=== PATIENT | male | born 1940 | race Caucasian/White ===

== ENCOUNTER 2017-03-07 10:20 | Inpatient (IN) | payer MEDICARE, BC ==
[~2017-03-07] VITALS: Ht 175.3 cm; Wt 63.5 kg
--- NOTE | 2017-03-07 10:24 | NUR ---
[id number] FROM HOME: R HIP PAIN S/P GLF.
--- NOTE | 2017-03-07 11:00 | NUR ---
RAC #16 IV ACCESS. BLOOD SAMPLE COLLECTED SENT TO LAB
--- NOTE | 2017-03-07 11:19 | NUR ---
PAGED FLIGHT FOLLOWER ORTHO DR HENDRICKSON
--- NOTE | 2017-03-07 11:32 | NUR ---
CALLED [employer], CIRCUIT DESIGNER WAS PAGED.
[2017-03-07 11:47] LABS: BASOPHILS # (AUTO) 0.1 /CMM (0.0-0.2); BASOPHILS % (AUTO) 0.4 % (0.0-2.0); EOSINOPHILS # (AUTO) 0.1 /CMM (0.0-0.7); EOSINOPHILS % (AUTO) 0.9 % (0.0-6.0); HEMATOCRIT 46 % (39-51); HEMOGLOBIN 15.6 g/dL (13.5-17.5); LYMPHOCYTES # (AUTO) 0.7 /CMM (0.8-4.8); LYMPHOCYTES % (AUTO) 5.1 % (20.0-44.0); MEAN CORPUSCULAR HEMOGLOBIN 30 PG (26.0-33.0); MEAN CORPUSCULAR HGB CONC 34 g/dl (31.0-36.0); MEAN CORPUSCULAR VOLUME 89 fL (80-96); MONOCYTES # (AUTO) 0.6 /CMM (0.1-1.30); NEUTROPHILS # (AUTO) 12.7 /CMM (1.8-8.9); NEUTROPHILS % (AUTO) 89.6 % (43.0-81.0); PLATELET COUNT (AUTO) 321 /CMM (150-450); RDW COEFFICIENT OF VARIATION 12.5 (11.5-15.0); RED BLOOD CELL COUNT(AUTO) 5.17 MIL/uL (4.5-6.0); WHITE BLOOD COUNT (AUTO) 14.2 K/uL (4.3-11.0)
--- NOTE | 2017-03-07 11:47 | NUR ---
MS 320-1
[2017-03-07 11:51] LABS: CALCIUM, SERUM 8.2 mg/dL (8.5-10.1); CARBON DIOXIDE 28 mmol/L (21-32); CHLORIDE 92 mmol/L (98-107); CREATININE 0.8 mg/dL (0.6-1.3); GLUCOSE 141 mg/dL (74-106); POTASSIUM 4.2 mmol/L (3.5-5.1); SODIUM SERUM 126 mmol/L (136-145); UREA NITROGEN, BLOOD 6 mg/dL (7-18)
[2017-03-07 11:59] LABS: INR 0.97 (0.87-1.13); PROTHROMBIN TIME 10.1 SECS (9.5-12.7)
[2017-03-07] MEDS ORDERED: DUTA0.5C PO (12:10)
[2017-03-07] MEDS ORDERED: CLID1CAP PO (12:10)
[2017-03-07] MEDS ORDERED: ASPI81TA2 PO (12:10)
--- NOTE | 2017-03-07 12:12 | NUR ---
GAVE REPORT TO CAL CLARK MS RT HIP FX DR GARZA
--- NOTE | 2017-03-07 12:41 | NUR ---
PT GIVEN PAIN MEDS PER MD . SURGEON AT BEDSIDE VSS
--- NOTE | 2017-03-07 12:42 | NUR ---
TRANSFER TO FLOOR STABLE
[2017-03-07 13:10] VITALS: BP 133/72
--- NOTE | 2017-03-07 13:10 | NUR ---
MS Initial Notes: Patient transferred from ER per MD orders. Received report from [facility]. Patient stable. Non-labored breathing noted. No signs of distress. Vital signs within normal range. Patient alert oriented x4. Patient's belongings accounted for. Patient refused pain medications when offered. Patient has right AC IV that is patent and intact. Pictures of skin discoloration and bruising taken and placed in chart. Patient refused to turn and refused pictures to be taken of his back. Dr. Dooley aware of admission. Will continue to monitor.
[2017-03-07 13:40] VITALS: BP 133/72
--- NOTE | 2017-03-07 15:10 | NUR ---
MS RN NOTES: Family members notified to bring a copy of the advanced directives.
[2017-03-07 16:00] VITALS: BP 132/82
--- NOTE | 2017-03-07 18:52 | NUR ---
MS RN Closing Notes: Patient resting in bed. Patient stable. Non-labored breathing noted. No signs of distress. Vital signs within normal range. Patient alert oriented x4. IV patent and intact. Bed in lowest/locked position. Call light within reach. Will endorse to next shift.
--- NOTE | 2017-03-07 19:00 | NUR ---
RN NOTE PT AAOX4, HERE FOR R HIP FX. NO C/O ANY PAIN OR DISCOMFORT AT THIS TIME. NO S/S OF RESPIRATORY DISTRESS. BREATHING NON-LABORED AND EVEN. IV INTACT, TOLERATING FLUISD WELL. CALL LIGHT IN REACH. WILL CONT TO MONITOR.
[2017-03-07 20:00] VITALS: BP 136/84
--- NOTE | 2017-03-08 06:59 | NUR ---
RN NOTE NO SIGNIFICANT EVENTS OVERNIGHT. PT AAOX4, NO S/S OR C/O ANY PAIN OR DISTRESS AT THIS TIME. BREATHING EVEN AND NON-LABORED. IV INTACT AND PATENT, TOLERATING FLUIDS WELL. FAMILY AT BEDSIDE. WILL F/U WITH DAY SHIFT FOR CLAIRE.
--- NOTE | 2017-03-08 07:00 | NUR ---
RN NOTE NO SIGNIFICANT CHANGES OVERNIGHT. PT AAOX4, DENIES PAIN AT THIS TIME. BREATHING NON-LABORED AND EVEN. NPO SINCE MN. IV INTACT AND PATENT, TOLERATING FLUISD WELL. FOR SURGERY TODAY 0800. WILL F/U WITH DAY SHIFT FOR CLAIRE.
--- NOTE | 2017-03-08 07:15 | NUR ---
MS RN Notes Patient in bed, awake, A/O x4. Patient is on NPO status, for surgery today. Patient is aware. IV NS infusing at 75ml/hr. No c/o pain at this time, call light within reach.
[2017-03-08 07:30] VITALS: BP 141/76
[2017-03-08 07:30] LABS: BASOPHILS % (AUTO) 0.1 % (0.0-2.0); EOSINOPHILS # (AUTO) 0.2 /CMM (0.0-0.7); EOSINOPHILS % (AUTO) 1.7 % (0.0-6.0); HEMATOCRIT 37 % (39-51); HEMOGLOBIN 12.5 g/dL (13.5-17.5); LYMPHOCYTES # (AUTO) 1.5 /CMM (0.8-4.8); LYMPHOCYTES % (AUTO) 14.7 % (20.0-44.0); MEAN CORPUSCULAR HEMOGLOBIN 30 PG (26.0-33.0); MEAN CORPUSCULAR HGB CONC 34 g/dl (31.0-36.0); MEAN CORPUSCULAR VOLUME 89 fL (80-96); MONOCYTES % (AUTO) 9.6 % (2.0-12.0); NEUTROPHILS # (AUTO) 7.6 /CMM (1.8-8.9); NEUTROPHILS % (AUTO) 73.9 % (43.0-81.0); PLATELET COUNT (AUTO) 253 /CMM (150-450); RDW COEFFICIENT OF VARIATION 13.5 (11.5-15.0); WHITE BLOOD COUNT (AUTO) 10.3 K/uL (4.3-11.0)
--- NOTE | 2017-03-08 07:36 | NUR ---
Patient is taken to the OR for surgery ORIF R Hip
[2017-03-08 08:00] VITALS: BP 141/76
[2017-03-08 08:00] LABS: CALCIUM, SERUM 8.1 mg/dL (8.5-10.1); CARBON DIOXIDE 27 mmol/L (21-32); CHLORIDE 99 mmol/L (98-107); CREATININE 0.7 mg/dL (0.6-1.3); GLUCOSE 121 mg/dL (74-106); MAGNESIUM 2.1 mg/dL (1.8-2.4); PHOSPHORUS 3.2 mg/dL (2.5-4.9); POTASSIUM 4.6 mmol/L (3.5-5.1); SODIUM SERUM 133 mmol/L (136-145); UREA NITROGEN, BLOOD 7 mg/dL (7-18)
[2017-03-08 11:05] VITALS: BP 133/67
--- NOTE | 2017-03-08 11:05 | NUR ---
Patient is back from surgery, fracture R hip. V/S taken and recorded, made comfortable in bed. Left wrist has IV gauge 20 patient and intact, inserted in the OR. Right hip dressing in place, no bleeding noted. Will cont to monitor closely.
[2017-03-08 16:00] VITALS: BP 139/69
--- NOTE | 2017-03-08 18:14 | NUR ---
MS RN closing notes Patient in bed, not in distress. S/P surgical fixation right femur fracture today by dr. Wilkerson. Right hip surgical incision, dressing in place, no bleeding. On antibiotic with no adverse side effect, afebrile, no diarrhea. NWB RLE per ortho. Luu cath intact, draining to gravity, urine clear and yellow. No c/o pain at this time. SCD in place. Call light within reach. Will endorse to shift superintendent RN for continuity of care.
--- NOTE | 2017-03-08 19:07 | NUR ---
Received phone call from Kevyn/CHIOMA, BMP CBC in am per Dr. Greco.
--- NOTE | 2017-03-08 19:10 | NUR ---
RN NOTE RECEIVED REPORT. PT AAOX4, NO C/O PAIN OR DISCOMFORT. BREATHING EVEN AND NON-LABORED. TOLERATING IV FLUIDS WELL. R HIP DRESSING I/C/D, NO BLEEDING NOTED. FC DRAINING YELLOW FLUID. ICE PACKS APPLIED TO SITE, LEG ELEVATED. WILL CONT TO MONITOR.
[2017-03-08 20:00] VITALS: BP 124/66
[2017-03-08 20:13] LABS: BASOPHILS % (AUTO) 0.1 % (0.0-2.0); EOSINOPHILS % (AUTO) 0.1 % (0.0-6.0); HEMATOCRIT 28 % (39-51); HEMOGLOBIN 9.7 g/dL (13.5-17.5); LYMPHOCYTES # (AUTO) 0.9 /CMM (0.8-4.8); LYMPHOCYTES % (AUTO) 6.7 % (20.0-44.0); MEAN CORPUSCULAR HEMOGLOBIN 31 PG (26.0-33.0); MEAN CORPUSCULAR HGB CONC 34 g/dl (31.0-36.0); MEAN CORPUSCULAR VOLUME 89 fL (80-96); MONOCYTES # (AUTO) 1.4 /CMM (0.1-1.30); MONOCYTES % (AUTO) 10.2 % (2.0-12.0); NEUTROPHILS # (AUTO) 11.2 /CMM (1.8-8.9); NEUTROPHILS % (AUTO) 82.9 % (43.0-81.0); PLATELET COUNT (AUTO) 226 /CMM (150-450); RDW COEFFICIENT OF VARIATION 12.9 (11.5-15.0); RED BLOOD CELL COUNT(AUTO) 3.16 MIL/uL (4.5-6.0); WHITE BLOOD COUNT (AUTO) 13.5 K/uL (4.3-11.0)
[2017-03-08 20:22] LABS: CALCIUM, SERUM 7.4 mg/dL (8.5-10.1); CARBON DIOXIDE 26 mmol/L (21-32); CHLORIDE 101 mmol/L (98-107); CREATININE 0.7 mg/dL (0.6-1.3); GLUCOSE 112 mg/dL (74-106); POTASSIUM 4.2 mmol/L (3.5-5.1); SODIUM SERUM 134 mmol/L (136-145); UREA NITROGEN, BLOOD 8 mg/dL (7-18)
--- NOTE | 2017-03-08 21:00 | NUR ---
RN NOTE PT REFUSED PICTURES OF SKIN ISSUES DESPITE TEACHING ON HOSPITAL POLICY. PT STATES HES IN TO MUCH PAIN TO MOVE.
[2017-03-08 21:24] LABS: LYMPHOCYTES % (MANUAL) 5 % (16-48); MONOCYTES % (MANUAL) 5 % (0-11.0); NEUTROPHILS % (MANUAL) 89 (42-76); REACTIVE LYMPHOCYTES 1 % (0-0)
--- NOTE | 2017-03-09 06:45 | NUR ---
RN NOTE NO SIGNIFICANT CHANGES OVERNIGHT. PT SLEPT WELL. AAOX3, NO S/S OR C/O ANY PAIN OR DISCOMFORT AT THIS TIME. IV INTACT AND PATENT. BREATHING NON-LABORED AND EVEN. SX DRESSING I/C/D. RLE ELEVATED , ICE PACKS APPLIED. CALL LIGHT IN REACH, WILL F/U WITH DAY SHIFT FOR CLAIRE.
[2017-03-09 06:51] LABS: BASOPHILS % (AUTO) 0.2 % (0.0-2.0); HEMATOCRIT 24 % (39-51); HEMOGLOBIN 8.1 g/dL (13.5-17.5); LYMPHOCYTES # (AUTO) 1.3 /CMM (0.8-4.8); LYMPHOCYTES % (AUTO) 12.7 % (20.0-44.0); MEAN CORPUSCULAR HEMOGLOBIN 31 PG (26.0-33.0); MEAN CORPUSCULAR HGB CONC 34 g/dl (31.0-36.0); MEAN CORPUSCULAR VOLUME 90 fL (80-96); MONOCYTES % (AUTO) 9.6 % (2.0-12.0); NEUTROPHILS # (AUTO) 7.7 /CMM (1.8-8.9); NEUTROPHILS % (AUTO) 77.5 % (43.0-81.0); PLATELET COUNT (AUTO) 186 /CMM (150-450); RDW COEFFICIENT OF VARIATION 13.6 (11.5-15.0); RED BLOOD CELL COUNT(AUTO) 2.66 MIL/uL (4.5-6.0); WHITE BLOOD COUNT (AUTO) 9.9 K/uL (4.3-11.0)
[2017-03-09 06:55] LABS: CALCIUM, SERUM 7.2 mg/dL (8.5-10.1); CARBON DIOXIDE 25 mmol/L (21-32); CHLORIDE 100 mmol/L (98-107); CREATININE 0.6 mg/dL (0.6-1.3); GLUCOSE 116 mg/dL (74-106); POTASSIUM 4.1 mmol/L (3.5-5.1); SODIUM SERUM 132 mmol/L (136-145); UREA NITROGEN, BLOOD 7 mg/dL (7-18)
[2017-03-09 07:43] LABS: IRON, SERUM 15 ug/dl (50-175); TOTAL IRON BINDING CAPACITY 164 ug/dl (250-450)
[2017-03-09 07:45] LABS: FERRITIN 235 ng/mL (8-388)
--- NOTE | 2017-03-09 07:57 | NUR ---
MED SURGE RN: INITIAL NOTE RECEIVED PT A/O X4. NO DISTRESS. NO PAIN. NO SOB NOTED. SATING AT 98% ON ROOM AIR. F/C IN PLACE AND DRAINING. R AC AND L WRIST IV. RUNNING IV NS @ 75ML/HR. SITE CLEAR. PATENT. NO REDNESS. NO INFILTRATION NOTED. RESTING COMFORTABLY IN BED. CALL LIGHT WITHIN REACH.
[2017-03-09 08:00] VITALS: BP 108/63
--- NOTE | 2017-03-09 09:00 | NUR ---
P.T. CALLED AND QUESTIONED PT'S WT BEARING ORDER.CALLED DR SMART'S OFFICE AND METAL SANDER STATED THAT DR SMART IS IN THE MEETING AND WON'T BE AVAILABLE NOT TILL 1400.PT AND PHYSICAL THERAPY MADE AWARE.
--- NOTE | 2017-03-09 12:21 | NUR ---
WOUND CARE CONSULT: PT REFUSED SKIN ASSESSMENT. PT NOTED TO BE ANGRY AND IRRITABLE. PT ON PLACIDO ISOFLEX LOW AIRLOSS BED. ALL SKIN PROTECTION MEASURES IN PLACE AND DISCUSSED WITH NURSING STAFF. WILL SEE PRN. NATH IN AGREEMENT WITH PLAN OF CARE.
[2017-03-09 16:00] VITALS: BP 139/69
--- NOTE | 2017-03-09 16:17 | NUR ---
CALLED DR SMART TO NOTIFY HIM THAT P.T.TX CAN'T BE 2X A DAY PER PROTOCOL BUT TO NO AVAIL.
--- NOTE | 2017-03-09 16:18 | NUR ---
PT WAS SEEN BY NEGRA Hassan WHO REPORTED THAT PT SAT ON BED WITH MAX ASSIST IN STANDING AND SITTING BUT PT IS LEANING BACKWARDS.PT WILL BE SEEN TOMORROW BY Mo
--- NOTE | 2017-03-09 18:41 | NUR ---
MED SURGE RN: CLOSING NOTE PT A/OX4. TOOK ALL MEDICATIONS ON TIME. NO ADVERSE REACTIONS NOTED. PAIN CONTROLLED WITH PAIN MANAGEMENT. NO SOB. ON 2L NC SATING AT 98%. SPIROMETER AT BEDSIDE. EDUCATED TO USE [id number]. R WRSIT AND L WRIST IV PATENT. NO REDNESS NOTED. NO PAIN NOTED. NO IV FLUIDS RUNNING. TURNED AND REPOSITIONED [id number]. NO N/V NOTED. PT KANCHAN STATED MAXIMUM ASSIST WHILE WALKING AND PARTIAL WEIGHT BARING. RESTING COMFORTABLY IN BED. CALL LIGHT WITHIN REACH.
--- NOTE | 2017-03-09 19:15 | NUR ---
RN NOTES RECEIVED PT ASLEEP EASILY AROUSABLE,HOB ELEVATED, NO SOB, NOT IN DISTRESS ON 2LPM O2 AND TOLERATED WELL. PT ALERT AND ORIENTED X4, DENIES PAIN, NAUSEA AND VOMITING AT THIS TIME. IV ACCESS ON RIGHT AC AND LEFT WRIST PATENT AND INTACT, NO SIGNS OF INFILTRATE NOTED. OLEARY CATH INTACT WITH CLEAR YELLOW URINE OUTPUT NOTED. DVT PUMP ON. KEPT COMFORTABLE AND ATTENDED. FALL PRECAUTION OBSERVED. CALL LIGHT WITHIN REACH. WILL CONTINUE TO MONITOR PT.
[2017-03-09 20:00] VITALS: BP 126/71
[2017-03-09 22:00] VITALS: BP 126/71
--- NOTE | 2017-03-10 07:37 | NUR ---
RN NOTES PT ASLEEP, HOB ELEVATED, NO SOB, NOT IN DISTRESS, ON ROOM AIR WITH GOOD SATURATION. VITAL SIGNS STABLE, AFEBRILE. NO COMPLAIN OF PAIN, NO EPISODE OF NAUSEA AND VOMITING. OLEARY CATH INTACT WITH CLEAR URINE OUTPUT NOTED. ALL NEEDS ATTENDED. ENDORSED TO MORNING RN FOR CONTINUITY OF CARE.
--- NOTE | 2017-03-10 07:46 | NUR ---
MED SURGE RN: INITIAL NOTES RECEIVED PT A/O X4. NO DISTRESS NOTED. NO SOB NOTED. ON 2L NC SATING AT 95%. FOLY CATH IN PLACE DRAINING AND PATENT. NO PAIN. RIGHT LEG DRESSING STILL INTACT. IV ON RAC AND LW WITH NO IV FLUIDS RUNNING. RESTING COMFORTABLY IN BED. CALL LIGHT WITHIN REACH.
[2017-03-10 08:00] VITALS: BP 136/71
--- NOTE | 2017-03-10 10:00 | NUR ---
PT REFUSED TO BE TURNED AND REPOSITIONED. ALL RISKS AND BENEFITS EXPLAINED. OFFERED TO GIVE PAIN MEDICATIONS TO HELP WITH INCREASE IN ADLS. PT REFUSED.
--- NOTE | 2017-03-10 12:00 | NUR ---
PT REFUSED TO BE TURNED AND REPOSITIONED. ALL RISKS AND BENEFITS EXPLAINED. PT STATED HE IS COMFORTABLE SITTING THE WAY HE IS.
--- NOTE | 2017-03-10 14:00 | NUR ---
PT WAS ABLE TO AMBULATE WITH MAXIMUM ASSISTANCE DURING PHYSICAL THERAPY. ADMINISTERED PAIN MEDICATIONS BEFORE PT. EDUCATED THE PT ABOUT THE IMPORTANCE OF PAIN MEDICATIONS TO BE ABLE TO COMPLETE ADLS COMFORTABLY. PT STATED HE DOES NOT WANT TO BE TURNED AND REPOSITIONED. ALL RISKS AND BENEFITS EXPLAINED.
--- NOTE | 2017-03-10 15:22 | NUR ---
PT WAS SEEN BY P.T. AND RECOMMENDED ACUTE REHAB UNIT PLACEMENT.DR COATS MADE AWARE WITH ORDERS FOR CASE MGT CONSULT.CALLED CLINT,DOPE MIXER WHO IS ALREADY DOING FOLLOW UP ON THE PT FOR ARU PLACEMENT.
[2017-03-10 16:00] VITALS: BP 108/63
--- NOTE | 2017-03-10 18:07 | NUR ---
MED SURGE RN: CLOSING NOTE PT A/O X4. NO DISTRESS. NO SOB. O2 RUNNING 2 L NC SATING AT 96%. IC ON RAC #18 AND LW #20. NO IV FLUIDS RUNNING. NO N/V NOTED. ABLE TO AMBULATE WITH PT WITH WALKER AND MAXIMUM ASSISTANCE. PAIN MEDICATIONS PROVIDED BEFORE PT. PROVIDED PAIN MEDICATIONS THROUGHOUT SHIFT BUT PT REFUSED (EXCEPT BEFORE PT) STATING THAT HE IS COMFORTABLE. REFUSED TO TURN AND REPOSITION Q2 HOURS. ALL RISKS AND BENEFITS EXPLAINED. FC D/C PER MD ORDERS. NO URINE RETENTION NOTED. ABLE TO URINATE. RESTING COMFORTABLY IN BED. CALL LIGHT WITHIN REACH.
--- NOTE | 2017-03-10 19:30 | NUR ---
MS RN NOTES RECEIVED ON BED A/O X 3-4.BREATHING REGULAR.O2 IN USED AT 2L TO KEEP O2 SAT ABOVE 90%.S/P RIGHT HIP ORIF,FIRS DRESSING DONE TODAY.DRESSING INTACT AND DRY.SALINE LOCK BOTH ARMS INTACT AND PATENT.DVT PUMP IN USED FOR DVT PROPHYLAXIS.BED ON LOWEST POSITION AND LOCK.CALL LIGHT IN REACH,NEEDS ANTICIPATED.
[2017-03-10 20:00] VITALS: BP 121/69
--- NOTE | 2017-03-10 20:00 | NUR ---
MS RN NOTES CLAIMED IM NOT COMFORTABLE,OFFERED TO BE REPOSITION BUT REFUSED,OFFERED PAIN CONTROL BUT SAID PAIN IS TOLERABLE.OFFERED WARM BLANKET AND HE FEELS BETTER.
[2017-03-10 20:20] VITALS: BP 121/69
--- NOTE | 2017-03-10 20:51 | NUR ---
MS RN NOTES HAVING ACID REFLUX,MAALOX 30ML PO ADMINISTERED PER PATIENT REQUEST
--- NOTE | 2017-03-10 20:53 | NUR ---
MS RN NOTES S/P RIGHT HIP ORIF,PT/INT.PLATELETS WITH IN NORMAL LIMITS,DUE LOVENOX 40MG SQ ADMINISTERED VIA RIGHT LOWER ABDOMEN.
--- NOTE | 2017-03-10 22:00 | NUR ---
MS RN NOTES OFFERED TO BE REPOSITION BUT REFUSED.EXPLAINED RISK FOR STAYING IN ONE POSITION BUT STILL REFUSED.
[2017-03-11] VITALS (8 sets, daily range): BP systolic 98–163; BP diastolic 57–84
--- NOTE | 2017-03-11 | NUR ---
MS RN NOTES SLEEPING WITH HOB ON UPRIGHT POSITION,OFFERED TO HELD DOWN A LITTLE BIT BUT REFUSED.OFFERED TO REPOSITION,REFUSED
--- NOTE | 2017-03-11 02:00 | NUR ---
MS RN NOTES SOUND ASLEEP ON SUPINE POSITION.KEPT WARM AND COMFORTABLE.
--- NOTE | 2017-03-11 06:15 | NUR ---
MS RN NOTES GETS OUT OF BED ASSISTED TO BEDSIDE CHAIR,NOTED SLIGHT BLEEDING ON SURGERY SITE,PRESSURE DRESSING DONE.OFFERED PAIN MEDICINE BUT REFUSED.
--- NOTE | 2017-03-11 06:48 | NUR ---
MS RN NOTES TOLERATED GETTING OUT OF BED WITH ASSIST.PAIN TOLERABLE.PUT BACK ON DVT PUMP.WILL RE CHECK VITAL SIGNS.CALL LIGHT IN REACH,NEEDS ATTENDED.WILL ENDORSE TO DAY NURSE FOR CLAIRE.
--- NOTE | 2017-03-11 07:28 | NUR ---
RN NOTES PATIENT AWAKE ALERT AND VERBALLY RESPONSIVE ABLE TO MAKE NEEDS KNOWN, WITH PERIODS OF FORGETFULNESS. RESPIRATIONS EVEN AND UNLABORED, IN NO APPARENT PAIN OR DISCOMFORT, NO FACIAL GRIMACING OR GUARDED MOVEMENT NOTED. IV ACCESS PATENT AND INTACT NO REDNESS OR INFILTRATION NOTED. PATIENT COMFORTABLE, CALL LIGHT WITHIN EASY REACH, WILL CONTINUE TO MONITOR
[2017-03-11 07:44] LABS: BASOPHILS % (AUTO) 0.1 % (0.0-2.0); EOSINOPHILS # (AUTO) 0.1 /CMM (0.0-0.7); EOSINOPHILS % (AUTO) 0.9 % (0.0-6.0); HEMATOCRIT 22 % (39-51); HEMOGLOBIN 7.6 g/dL (13.5-17.5); LYMPHOCYTES # (AUTO) 0.8 /CMM (0.8-4.8); MEAN CORPUSCULAR HEMOGLOBIN 31 PG (26.0-33.0); MEAN CORPUSCULAR HGB CONC 34 g/dl (31.0-36.0); MEAN CORPUSCULAR VOLUME 89 fL (80-96); MONOCYTES # (AUTO) 0.6 /CMM (0.1-1.30); MONOCYTES % (AUTO) 8.5 % (2.0-12.0); NEUTROPHILS # (AUTO) 5.4 /CMM (1.8-8.9); NEUTROPHILS % (AUTO) 79.5 % (43.0-81.0); PLATELET COUNT (AUTO) 214 /CMM (150-450); RDW COEFFICIENT OF VARIATION 13.5 (11.5-15.0); RED BLOOD CELL COUNT(AUTO) 2.45 MIL/uL (4.5-6.0); WHITE BLOOD COUNT (AUTO) 6.9 K/uL (4.3-11.0)
[2017-03-11 08:19] LABS: CALCIUM, SERUM 7.1 mg/dL (8.5-10.1); CARBON DIOXIDE 26 mmol/L (21-32); CHLORIDE 97 mmol/L (98-107); CREATININE 0.5 mg/dL (0.6-1.3); GLUCOSE 103 mg/dL (74-106); POTASSIUM 3.4 mmol/L (3.5-5.1); SODIUM SERUM 129 mmol/L (136-145); UREA NITROGEN, BLOOD 7 mg/dL (7-18)
[2017-03-11 11:06] LABS: HEMOGLOBIN 7.2 g/dL (13.5-17.5)
[2017-03-11 16:18] LABS: URINE SODIUM, RANDOM 18 mmol/l (40-220)
--- NOTE | 2017-03-11 16:38 | NUR ---
RN NOTES PATIENT STARTED ON BLOOD TRANSFUSION, WILL CONTINUE TO MONITOR FOR ANY REACTION, 2 NURSES COSIGNED
--- NOTE | 2017-03-11 16:52 | NUR ---
RN NOTES PATIENT ON TRANSFUSION FOR 15 MINUTES NO S/S OF ALLERGIC REACTIONS NOTED. IN NO APPARENT DISTRESS NOTED, WILL CONTINUE TO MONITOR
--- NOTE | 2017-03-11 17:49 | NUR ---
RN NOTES PER DR COATS PATIENT TO COMPLETE BLOOD TRANSFUSION HEMOGLOBIN LEVEL TO BE DRAWN ONE HOUR AFTER COMPLETION. SECOND TRANSFUSION TO BE ORDERED AFTER HEMOGLOBIN LEVEL IS DRAWN.
--- NOTE | 2017-03-11 19:07 | NUR ---
RN NOTES TRANSFUSION COMPLETED AND ENDED, NO ALLERGIC REACTIONS NOTED, TOLERATED WELL. IN NO APPARENT DISTRESS, LAB CALLED FOR HGB LEVEL TO BE DRAWN AT 2006, ENDORSED TO NEXT SHIFT FOR CONTINUITY OF CARE
--- NOTE | 2017-03-11 19:30 | NUR ---
RN NOTES PATIENT AWAKE ALERT AND VERBALLY RESPONSIVE ABLE TO MAKE NEEDS KNOWN, WITH PERIODS OF FORGETFULNESS. RESPIRATIONS EVEN AND UNLABORED, IN NO APPARENT PAIN OR DISCOMFORT, NO FACIAL GRIMACING OR GUARDED MOVEMENT NOTED. IV ACCESS PATENT AND INTACT NO REDNESS OR INFILTRATION NOTED. PATIENT COMFORTABLE, CALL LIGHT WITHIN EASY REACH, ENDORSED TO NEXT SHIFT FOR CONTINUITY OF CARE
[2017-03-11 20:04] LABS: OSMOLALITY,URINE 148 mOS/kg (340-1090)
[2017-03-11 20:33] LABS: BASOPHILS % (AUTO) 0.1 % (0.0-2.0); EOSINOPHILS % (AUTO) 0.4 % (0.0-6.0); HEMATOCRIT 24 % (39-51); HEMOGLOBIN 8.2 g/dL (13.5-17.5); LYMPHOCYTES # (AUTO) 0.3 /CMM (0.8-4.8); LYMPHOCYTES % (AUTO) 5.5 % (20.0-44.0); MEAN CORPUSCULAR HEMOGLOBIN 30 PG (26.0-33.0); MEAN CORPUSCULAR HGB CONC 34 g/dl (31.0-36.0); MEAN CORPUSCULAR VOLUME 90 fL (80-96); MONOCYTES # (AUTO) 0.1 /CMM (0.1-1.30); MONOCYTES % (AUTO) 1.4 % (2.0-12.0); NEUTROPHILS # (AUTO) 5.4 /CMM (1.8-8.9); NEUTROPHILS % (AUTO) 92.6 % (43.0-81.0); PLATELET COUNT (AUTO) 211 /CMM (150-450); RDW COEFFICIENT OF VARIATION 13.6 (11.5-15.0); RED BLOOD CELL COUNT(AUTO) 2.69 MIL/uL (4.5-6.0); WHITE BLOOD COUNT (AUTO) 5.8 K/uL (4.3-11.0)
--- NOTE | 2017-03-11 22:05 | NUR ---
ms/rn notes Patient one bed, alert et oriented.x3. respiration even et unlabored. No sob noted . Vital signs stable, afebrile. No complaints of any pain or discomfort at this time. Received 1 unit of prbc from day shift, Recheck Hem level post blood transfusion at 2030. H&H results- 8.2 and 24. Called and spoke with Dr. John and made aware of the result. She said not to give the 2nd unit of Prbc as ordered by Dr. Hlul. Just recheck the Labs in am. Charge nurse made aware. Will continue to monitor patient.
--- NOTE | 2017-03-12 05:42 | NUR ---
ms/rn notes patient on bed, no significant changes noted.Vital signs stable, afebrle. Denies pain or discomfort at present. administered all meds as ordered. Dressing changed on the right hip. patient tolerated it well. no acute distress noted. all needs attended. will continue to plan of care.
--- NOTE | 2017-03-12 07:33 | NUR ---
RN OPENING NOTES PATIENT RESTING COMFORTABLY IN BED WITH EYES CLOSED. PATIENT EASILY AROUSABLE. PATIENT REPORTED TO BE FORGETFUL, AOX2-3. PATIENT ON BEDREST. RESPIRATIONS APPEAR EVEN AND UNLABORED. PATIENT DENIES PAIN. DENIES SOB. NO ACUTE DISTRESS NOTED. INCENTIVE SPIROMETER AT THE BEDSIDE. IV ACCESS RIGHT AC 18G AND LEFT WRIST 20G PATENT AND INTACT. BED LOCKED IN THE LOWEST POSITION WITH SIDERAILS UP X2. WILL CONTINUE TO MONITOR, ASSESS, AND EDUCATE PATIENT.
[2017-03-12 07:48] LABS: BASOPHILS % (AUTO) 0.3 % (0.0-2.0); EOSINOPHILS # (AUTO) 0.1 /CMM (0.0-0.7); EOSINOPHILS % (AUTO) 1.4 % (0.0-6.0); HEMATOCRIT 24 % (39-51); HEMOGLOBIN 8.3 g/dL (13.5-17.5); LYMPHOCYTES # (AUTO) 1.1 /CMM (0.8-4.8); MEAN CORPUSCULAR HEMOGLOBIN 31 PG (26.0-33.0); MEAN CORPUSCULAR HGB CONC 35 g/dl (31.0-36.0); MEAN CORPUSCULAR VOLUME 90 fL (80-96); MONOCYTES # (AUTO) 0.6 /CMM (0.1-1.30); MONOCYTES % (AUTO) 6.8 % (2.0-12.0); NEUTROPHILS # (AUTO) 6.4 /CMM (1.8-8.9); NEUTROPHILS % (AUTO) 78.5 % (43.0-81.0); PLATELET COUNT (AUTO) 242 /CMM (150-450); RDW COEFFICIENT OF VARIATION 13.6 (11.5-15.0); RED BLOOD CELL COUNT(AUTO) 2.68 MIL/uL (4.5-6.0); WHITE BLOOD COUNT (AUTO) 8.2 K/uL (4.3-11.0)
[2017-03-12 08:00] VITALS: BP 129/71
[2017-03-12 08:04] LABS: CALCIUM, SERUM 7.2 mg/dL (8.5-10.1); CARBON DIOXIDE 24 mmol/L (21-32); CHLORIDE 98 mmol/L (98-107); CREATININE 0.5 mg/dL (0.6-1.3); GLUCOSE 102 mg/dL (74-106); POTASSIUM 3.9 mmol/L (3.5-5.1); SODIUM SERUM 130 mmol/L (136-145); UREA NITROGEN, BLOOD 8 mg/dL (7-18)
--- NOTE | 2017-03-12 09:11 | NUR ---
RN CLOSING NOTES PATIENT IN STABLE CONDITION RESTING IN BED. PATIENT PRE MEDICATED PRIOR TO AMBULATION WITH PHYSICAL THERAPY PER PHYSICAL THERAPIST. ALL MORNING MEDS GIVEN. I.S. TEACHING DONE. BED LOCKED IN THE LOWEST POSITION WITH SIDE RAILS UP X2. ENDORSED TO AMBER BOLTON FOR CLAIRE.
--- NOTE | 2017-03-12 12:35 | NUR ---
RN NOTES PATIENT WITH DISCHARGE ORDERS, WILL BE GOING TO [facility], PICTURES OF SKIN TAKEN AND PLACED IN CHART. DISCHARGE INSTRUCTIONS REVIEWED WITH PATIENT WITH VERBAL UNDERSTANDING NOTED WILL GIVE REPORT TO SNF RN, AND CONTINUE TO ASSIST WITH DISCHARGE PROCESS
--- NOTE | 2017-03-12 14:40 | NUR ---
RN NOTES PATIENT AWAKE ALERT AND VERBALLY RESPONSIVE ABLE TO MAKE NEEDS KNOWN, WITH PERIODS OF FORGETFULNESS. RESPIRATIONS EVEN AND UNLABORED, IN NO APPARENT PAIN OR DISCOMFORT, NO FACIAL GRIMACING OR GUARDED MOVEMENT NOTED. IV ACCESS REMOVED WELL ID BANDS WITH NO ASE NOTED.ALL BELONGINGS ACCOUNTED FOR, ALL APPROPRIATE PAPERWORK AND DISCHARGE INSTRUCTIONS REVIEWED WITH PT AND SNF RN, WITH VERBAL UNDERSTANDING NOTED. REPORT GIVEN TO SNF RN, JIMMIE, WITH VERBAL UNDERSTANDING NOTED. PT REFUSED FERLECCIT X3 HE IS BEING DISCHARGED, REINFORCED EDUCATION, CONTINUED TO REFUSE, PATIENT PICKED UP BY AMBULANCE TRANSPORT AND DISCHARGED IN STABLE CONDITION
[2017-03-16 14:14] LABS: CALCITRIOL VIT D,1, 25 DIHYDRO 52.1 pg/mL (19.9-79.3)
== END 2017-03-12 14:45 | DRG 481 ==
LOC: ER 10:21 → MED 12:08
PROVIDERS: ADMIT Internal Medicine; ATTEND Internal Medicine
PROC: 0QS706Z Reposition Left Upper Femur with Intramedullary Internal Fixation Device, Open Approach (ICD-10-PCS; principal; 2017-03-09)
PROC: 30233N1 Transfusion of Nonautologous Red Blood Cells into Peripheral Vein, Percutaneous Approach (ICD-10-PCS; 2017-03-11)
DX: S72.141A Displaced intertrochanteric fracture of right femur, initial encounter for closed fracture (principal); R65.10 Systemic inflammatory response syndrome (SIRS) of non-infectious origin without acute organ dysfunction; E86.1 Hypovolemia; E87.1 Hypo-osmolality and hyponatremia; D62 Acute posthemorrhagic anemia; K58.9 Irritable bowel syndrome, unspecified; D72.829 Elevated white blood cell count, unspecified; F17.210 Nicotine dependence, cigarettes, uncomplicated; N40.0 Benign prostatic hyperplasia without lower urinary tract symptoms; R73.9 Hyperglycemia, unspecified; W01.0XXA Fall on same level from slipping, tripping and stumbling without subsequent striking against object, initial encounter; Y93.89 Activity, other specified; Y92.008 Other place in unspecified non-institutional (private) residence as the place of occurrence of the external cause; J38.3 Other diseases of vocal cords; K59.00 Constipation, unspecified; E87.6 Hypokalemia
CPT/HCPCS: 36415; 71010-TC; 73501; 73502; 73552; 73560-TC; 80048-TC; 82306; 82652; 82728-TC; 83540-TC; 83735-TC; 83935-TC; 83970; 84100-TC; 84300-TC; 85025-TC; 85027-TC; 85730-TC; 86850-TC; 86921-TC; 87081-TC; 90715; 93307-TC; 97110-TC; 97116-TC; 97530-TC; A4606; A6209; A6253; A6402; A6403; C1713; J0690; J1100; J1170; J1650; J2270; J2405; J2704; J2710; J2916; J3490; J7030; J7050; J7060; P9016-BL; Z7610